=== PATIENT | male | born 1960 | race Caucasian/White ===

== ENCOUNTER → 2017-01-03 | Outpatient (CLI) | payer OTHER ==
--- NOTE | 2017-01-04 05:30 | PAP/PSG TECHNICIAN REPORT ---
[facility] Project Controls Specialist Polysomnogram Report Study name: None Report date: 01/04/2017 Study date: 01/03/2017 Referring Physician: MARLEY TIDWELL CRNP Name: ESTRELLA SCHMID Interpreting Physician: Blas Castillo M.D. Date of : 1960 Project Controls Specialist: EDNA Sood. Sex: Male Age: 56 StudyType: PSG Weight: 192.5 lbs Height: 56 years, Height 5' 6.5" Neck Circum:16.25inches BMI: 30.6 Medications: Meloxicam 15mg, Eszopiclone 1mg Patient History Study started on room air with no ETCO2 monitoring in room 38. 56 yr old male here tonight for a diagnostic psg. he complains of loud snoring and headaches. 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 He has tinnitus. ESS=0/24. Neck circ=16.25inches. Parameters Monitored NPSG: E1-M2, E2-M1, Fp1-M2, Fp2-M1, F3-M2, F4-M2, F4-M1, C3-M2, C4-M2, C4-M1, O1-M2, O2-M2, O2-M1, T3-M2, T4-M1, P3-M2, P4-M1, CHIN1, CHIN2, HR, EKG, Legs, PFLOW, SNOR, FLOW, CFLOW, Tidal Volume, THOR, ABDO, SpO2, PLTH, CPRESS, ETCO2 Wave, ETCO2, pH Sleep Architecture Sleep Stages Time at Lights Off 8:47:32 PM STAGES Time (min.) TST (%) Time at Lights On 5:15:02 AM Wake 179.5 -- Total Recording Time (TRT) 507.00 min. N1 26.0 8 Total Sleep Period (TSP) 388.0 min. N2 234.5 72 Total Sleep Time (TST) 327.5min. N3 30.5 9 Awake Time 179.5 min. REM 36.5 11 Wake after Sleep Onset 91.5 min. Sleep Efficiency (SE) 65 % Sleep Onset Latency (COLIN) 88.5 min. Number of Stage 1 Shifts None Awakenings 19 Stage Changes 114 Number of REM periods 13 REM 36.5 11 REM Latency 75.5 min. NREM 291.0 89 Body Position Analysis Supine Right Left Side Prone Vertical Total Sleep Time (min.) 310.0 115.0 28.0 143.00 0.0 0.0 Total Sleep Time (%) 56% 35% 9% 44 0% N/A% Total Sleep Time REM (min.) 14.5 11.5 10.5 None 0.0 0.0 Total Sleep Time NREM (min.) 170.0 103.5 17.5 None 0.0 0.0 Intermittent Wake (min.) 125.5 52.7 1.3 None 0.0 0.0 Total Sleep Period (%) 58% None None None None None Arousals Myoclonus (PLM) * Events Count Index Events Count Index Spontaneous 18 3 Events Awake (PLMW) 227 75.9 Respiratory 7 1.6 Events Asleep w/ Arousal (PLMA) 16 2.9 PLM 16 3 Events Asleep w/o Arousal (PLMS) 122 22.4 Snoring 9 2 Total Asleep 138 25.3 Total 50 9 Total 365 43 Respiratory Analysis * CA OA MA CH H RERA Total Count 0 0 0 0 30 0 30 Index 0.0 0.0 0.0 0 5.5 0 5.5 Mean Duration 0.0 0.0 0.0 0.00 30.5 0.0 30.5 Longest Duration 0.0 0.0 0.0 0.00 0.0 0.0 50.2 Respiratory Event Summary Total Supine ~Supine Right Left Prone REM NREM Apneas Count 0 0 0 0 0 N/A 0 0 Index 0.0 0 0 0.0 0.0 N/A 0 0 Hypopneas (4% Desat) Count 30 27 3 3 0 N/A 19 11 Index 5.5 8.8 1 1.6 0.0 N/A 31.2 2.3 Apneas & All Hypopneas Count 30 27 3 3 0 N/A 19 11 Index 5.5 9 1 2 0 N/A 31.2 2.3 Respiratory Events (Marketing Ambassador+All Hyp+RERA) Count 30 27 3 3 0 N/A 19 11 Index 5.5 9 1 1.6 0.0 N/A 31.2 2.3 Respiratory Related Arousal Count 7 27 1 1 0 N/A 8 1 Index 1.6 3 0 1 0 N/A 13 0 Snoring Analysis Supine Right Left Prone REM NREM Total Snore duration 26.1 min Snores count 905 286 3 N/A 59 1,135 1,194 Snore mean duration 1.3 Sec Snores index 294 149 6 N/A 97.0 234.0 218.7 TST with snoring (%) 8.0% Desaturation Event Summary: Minimum %SpO2 Event Count Mean/Min/Max Duration(sec.) Desaturation Index % Time In Bed > 90 42 34.9 / 10.3 / 60.0 6.1 84.2 86 - 90 4 25.5 / 19.0 / 32.5 3.2 15.3 81 - 85 0 N/A 0.0 0.5 76 - 80 0 N/A 0.0 0.0 71 - 75 0 N/A 0.0 0.0 66 - 70 0 N/A 0.0 0.0 61 - 65 0 N/A 0.0 0.0 56 - 60 0 N/A 0.0 0.0 51 - 55 0 N/A 0.0 0.0 < 50 0 N/A 0.0 0.0 Total REM NREM Awake <50% 0.0 min. 0.0 min. 0.0 min. 0.0 min. 51 - 60% 0.0 min. 0.0 min. 0.0 min. 0.0 min. 61 - 70% 0.0 min. 0.0 min. 0.0 min. 0.0 min. 71 - 80% 0.2 min. 0.2 min. 0.0 min. 0.0 min. 81 - 90% 77.9 min. 11.0 min. 35.4 min. 31.5 min. 91 - 100% 416.4 min. 25.3 min. 255.3 min. 135.8 min. Average 92 91 92 92 Minimum SpO2 80 80 84 82 Desaturation Event Index 5.1 24.7 2.9 5.0 # Desat. Events below 89% 12 8 1 3 Time(%) with Saturation below 89% 2.4 0.7 0.3 1.4 Time(min.) with Saturation below 89% 11.8 3.4 1.3 7.1 Time (mins) REM (mins) NREM (mins) % of TST SpO2 Below 90% 25 13 N12 3.1 SpO2 Below 88% 4 0 0 1 Heart Rate Analysis Min (bpm) Max (bpm) Average (bpm) Awake 51 127 67 NREM 51 86 60 REM 51 76 60 Overall 51 86 60 Supplemental O2 Values Minimum O2 level: None Value Start Time End Time Project Controls Specialist Comments Mr. Schmid slept in the right, left and supine positions. No cardiac arrhythmia noted. Some leg movements were noted. No bruxism noted. Snoring was noted and scored as a 3 on a scale of 1 through 5. (0=no snoring, 5=snoring loud enough to be heard through a closed door or down the fu way) He did not use the restroom during the night. He stated that he slept about the same as when at home. The final report will be interpreted and signed by a sleep physician. The completed physician report will then be placed in the patient medical record. Therapy (cm H2O) 0 TIB (min.) 507.0 TST (min.) 327.5 Sleep Onset (min.) 88.5 REM Onset From Sleep (min.) 75.5 Sleep Efficiency % 65 Wakefulness (%) 35 Wakefulness (min.) 179.5 NREM 1 (%) 8 NREM 1 (min.) 26.0 NREM 2 (%) 72 NREM 2 (min.) 234.5 NREM 3 (%) 9 NREM 3 (min.) 30.5 REM (%) 11 REM (min.) 36.5 # Arousals 50 Arousal Index 9 # Snore 1,194 Snore Index 218.7 AHI 5.5 AHI Supine 9 AHI Non-Supine 1 NREM AHI 2.3 REM AHI 31.2 RDI 5.5 # Obstructive Apnea 0 # Central Apnea 0 # Mixed Apnea 0 # Hypopneas 30 RERAs 0 Total Respiratory Events 34 Time Below SpO2 89% (min.) 4.7 Mean NREM SpO2 (%) 92 Mean REM SpO2 (%) 91 Mean Sleep SpO2 (%) 92 Min NREM SpO2 (%) 84 Min REM SpO2 (%) 80 Position Supine (min.) 310.0 Position Non-supine (min.) 143.0 LM Index Sleep 25.3 LM Index NREM 27.0 LM Index REM 11.5 Mean Heart Rate (bpm) 60 Min Heart Rate (bpm) 51
--- NOTE | 2017-01-05 14:18 | POLYSOMNOGRAPH REPORT ---
CLINICAL DATA: A 56-year-old male with BMI of 30.6 referred by MARLEY Emanuel at the [facility] for a diagnostic sleep study with a history of snoring, headaches, sleep onset insomnia, and sleep maintenance insomnia. His [place] sleepiness score is 0/24. SLEEP ARCHITECTURE: Total recording time was 507 minutes. Total sleep period was 388 minutes. Total sleep time was 327.5 minutes divided between 291 minutes of non-REM sleep and 36.5 minutes of REM sleep. Sleep onset latency was delayed at 88.5 minutes. REM latency was 75.5 minutes. Sleep efficiency was 65%. Wake after sleep onset was 91.5 minutes. Sleep consisted of stage N1 8%, stage N2 72%, stage N3 9%, and REM 11%. AROUSAL DATA: Fifty arousals were recorded for an index of 9 per hour. PLM DATA: 138 limb movements during sleep were noted for an index of 25.3 per hour with arousal index of 2.9 per hour. RESPIRATORY DATA: Very mild/borderline sleep apnea was seen. The AHI was 5.5. There were 30 hypopneic episodes with mean duration of 30.5 seconds. OXIMETRY DATA: No significant hypoxemia was seen. Oxygen carline was 80% during REM. The mean saturation was 92%. Time below 88% was 4 minutes. EKG: Heart rates ranged from 51-86 beats per minute. No arrhythmias were noted. PRODUCT SAFETY TECHNICIAN'S COMMENTS: The patient slept in the right, left, and supine positions. Some leg movements were noted. Snoring was moderate, rated 3 on a scale of 1-5. The majority of his hypopneas occurred while supine. IMPRESSION: Very mild/borderline sleep apnea with an AHI of 5.5 without significant nocturnal hypoxemia. RECOMMENDATIONS: The patient may benefit from weight loss, positional therapy, use of an oral appliance, or a repeat sleep study with CPAP. Clinical correlation is needed. [facility]
== END | disposition home or self-care (01) ==
LOC: C.NEUR 20:00
PROVIDERS: ATTEND Nurse Practitioner Adult Health
DX: G47.30 Sleep apnea, unspecified (principal)